=== PATIENT | female | born 1945 | race Caucasian/White ===

== ENCOUNTER 2017-04-30 10:00 | Outpatient (CLI) | payer MEDICARE, OTHER ==
--- NOTE | 2017-04-30 11:09 | BD ---
DEXA BONE MINERAL DENSITOMETRY EXAM, DENSITY STUDY: HISTORY: Postmenopausal. FINDINGS: Lumbar Spine: BMD (g/cm2) L1 1.174 T-Score: +1.7 L2 1.217 T-Score: +1.7 L3 1.395 T-Score: +2.8 L4 1.418 T-Score: +3.2 L1-L4 1.310 T-Score: +2.4 Femoral Neck: 0.649 T-Score: -1.8 Total Femur: 0.729 T-Score: -1.7 Impression: Osteopenia of the left femoral neck with normal bone mineral density of the lumbar spine. Lumbar spi ne value is somewhat elevated probably on the basis of degenerative sclerosis. POS: [facility]ANNA
--- NOTE | 2017-05-19 15:01 | MMO ---
BILATERAL DIGITAL SCREENING MAMMOGRAMS: HISTORY: This 71-year-old female presents for digital screening mammography. COMPARISON: 04/20/13, 03/16/12. This patient's mammogram is interpreted with the assistance of computer-aided detection. FINDINGS: Scattered fibroglandular changes are noted bilaterally. Occasional stable typically benign calcifi cations. Multiple stable bilateral parenchymal density asymmetries. IMPRESSION: BI-RADS category 2, benign findings. Continued routine screening. POS: [facility]
== END 2017-04-30 10:01 | disposition home or self-care (01) ==
LOC: MAMMO 10:00
PROVIDERS: ATTEND Family Medicine
DX: Z12.31 Encounter for screening mammogram for malignant neoplasm of breast (principal); Z78.0 Asymptomatic menopausal state
CPT/HCPCS: 77080; G0202; 77067

== ENCOUNTER 2017-05-23 10:58 | Inpatient (IN) | payer MEDICARE, OTHER ==
[2017-05-23 11:37] LABS: #Basophils 0.1 thou/uL (0.0-0.2); #Eosinphils 0.2 thou/uL (0.0-0.7); #Lymphocytes 4.8 thou/uL (1.20-3.40); #Monocytes 0.4 thou/uL (0.11-0.59); #Neutrophils 13.8 thou/uL (1.40-6.50); %Basophils 0.7 % (0.0-1.0); %Eosinophils 1.1 % (0.0-10.0); %Lymphocytes 24.7 % (21.0-51.0); %Monocytes 2.1 % (0.0-10.0); Mean Platelet Volume 8.2 fL (7.4-10.4); PTT 29.4 SEC (22.9-36.1); Prothrombin Time 15.4 SEC (12.0-14.7); Red Blood Cell (RBC) Count 4.82 mill/uL (4.20-5.40); White Blood Cell (WBC) Count 19.3 thou/uL (4.8-10.8)
[2017-05-23] MEDS ORDERED: ISOVUE-370 76%-LOCM 1 ML ONE (11:47)
[2017-05-23 11:57] LABS: Troponin I Less than 0.010 ng/mL (< 0.028)
[2017-05-23 11:59] LABS: Lactic Acid - Sepsis 6.5 mmol/L (0.5-2.2)
[2017-05-23 12:03] LABS: ALT (SGPT) 22 U/L (8-55); AST (SGOT) 41 U/L (5-34); Alkaline Phosphatase 426 U/L (40-150); Anion Gap 20 mmol/L (10-20); BUN (Urea Nitrogen) 25 mg/dL (9.8-20.1); Bilirubin, Total 0.5 mg/dL (0.2-1.2); CK (CPK) 152 U/L (29-168); Calc. Creatinine Clearance 0 mL/min (70-130); Calcium 9.5 mg/dL (7.8-10.44); Carbon Dioxide 16 mmol/L (23-31); Chloride 105 mmol/L (98-107); Estimated GFR-MDRD 28; Globulin 3.5 g/dL (2.4-3.5); Lipase 123 U/L (8-78); Protein, Total 7.4 g/dL (6.0-8.3)
[2017-05-23] MEDS ORDERED: Piperacillin/Tazobactam 4.5 GM in Sodium Chloride 0.9% 100 ML IVPB SCH (12:30)
[2017-05-23 12:52] LABS: Bilirubin Small (Negative); Blood, Urine Small (Negative); Glucose, Urine (Dipstick) 100 mg/dL (Negative); Ketone, Urine Negative (Negative); Nitrite Positive (Negative); Protein, Urine (Dipstick) 100 mg/dL (Neg-Trace)
[2017-05-23 12:55] LABS: Bacteria/HPF 4+ HPF (None Seen); RBC/HPF 0-3 HPF (0-3); Squamous Epithelial 0-3 HPF (0-3); WBC/HPF 21-50 HPF (0-3)
[2017-05-23 12:59] LABS: Hyaline Casts/LPF 4-6 HYALINE CAST LPF (0-3 Hyaline)
[2017-05-23] MEDS ORDERED: Chloraseptic Spray 180 ml Bottle PO PRN (13:49)
[2017-05-23] MEDS ORDERED: Senokot 8.6 MG TAB PO PRN (13:49)
[2017-05-23] MEDS ORDERED: Zolpidem Tartrate 5 MG TAB PO PRN (13:49)
[2017-05-23] MEDS ORDERED: Ondansetron HCl/PF 4 MG/2 ML Vial IVP PRN (13:49)
[2017-05-23] MEDS ORDERED: HYDROcodone/Acetaminophen 5/325 mg Tablet PO PRN (13:49)
[2017-05-23] MEDS ORDERED: hydrALAZINE 20 MG/ML VIAL SLOW IVP PRN (13:49)
[2017-05-23] MEDS ORDERED: Artificial Tears 18 DROP/0.9 ML EA EYE PRN (13:49)
[2017-05-23] MEDS ORDERED: Milk Of Magnesia 30 ML UDCUP PO PRN (13:49)
[2017-05-23] MEDS ORDERED: Morphine 4 MG/ML Carpuject SLOW IVP PRN (13:49)
[2017-05-23] MEDS ORDERED: Ondansetron ODT 4 MG TAB PO PRN (13:49)
[2017-05-23] MEDS ORDERED: Sodium Chloride 0.65% Nasal 44 ML BOT EA NARE PRN (13:49)
[2017-05-23] MEDS ORDERED: Eucerin (Mineral Oil/Petrolatum,White) 30 gm Jar TOP PRN (13:49)
[2017-05-23] MEDS ORDERED: Diabetic Tussin 200 MG/10 ML UDCUP PO PRN (13:49)
[2017-05-23] MEDS ORDERED: Loratadine 10 MG TAB PO PRN (13:49)
[2017-05-23] MEDS ORDERED: Acetaminophen 325 MG TAB PO PRN (13:49)
[2017-05-23] MEDS ORDERED: Mag-Al 1200 mg/1200 mg/30 ML UDCUP PO PRN (13:49)
--- NOTE | 2017-05-23 13:52 | CT ---
NONCONTRAST HEAD CT: Date: 05/23/17 HISTORY: Altered mental status. COMPARISON: None. TECHNIQUE: Noncontrast head CT is performed from skull base to skull vertex. FINDINGS: No parenchymal hemorrhage or extra-axial hematoma. No midline shift. Basilar cisterns are patent. Age -appropriate atrophy. Cortical mendez-white matter differentiation is preserved. Ventricles and sulci a re patent and symmetric. Adequate aeration of the sinuses and mastoid air cells. Minimal left sphenoi d sinus disease. Calvarium is intact. IMPRESSION: Minimal left sphenoid sinus disease. No acute intracranial process. POS: [facility]
[2017-05-23] MEDS ORDERED: Dextrose 5% in Water 1,000 ML IV PRN (14:11)
[2017-05-23] MEDS ORDERED: Dextrose 50% Abboject 50 ML SYRINGE SLOW IVP PRN (14:11)
[2017-05-23] MEDS ORDERED: HumaLOG 300 UNITS/3 ML VIAL SC PRN (14:11)
--- NOTE | 2017-05-23 14:22 | CT ---
CHEST CT WITH CONTRAST ABDOMEN CT WITH CONTRAST PELVIC CT WITH CONTRAST: Date: 05/23/17 HISTORY: Diffuse abdominal pain. Weakness. COMPARISON: None. TECHNIQUE: A chest, abdomen, and pelvis CT are performed with IV contrast. Coronal and sagittal reformatted imag es are submitted for interpretation. FINDINGS: CHEST CT: No mediastinal mass, lymphadenopathy, or hematoma. Heart size is within normal limits. No pericardial effusion. The thoracic aorta and abdominal aorta have an overall normal caliber. No periaortic fat s tranding. Atherosclerosis of the infrarenal abdominal aorta is noted. There is significant atheroscle rotic disease in both common iliac arteries. Trachea and central bronchi are patent. There are patchy ground-glass opacities, nonspecific. Interst itial prominence is noted. No suspicious masses. No consolidation. No pleural effusion. No pneumothor ax. ABDOMEN CT: Gallbladder is surgically absent. Liver, spleen, pancreas, and adrenal glands have appropriate enhanc ement. Nonspecific periportal edema. Portal vein is patent. No gastrohepatic, retrocrural, or periportal lymphadenopathy. No mesenteric mass, lymphadenopathy or free air. Trace amount of free fluid in both paracolic gutters . Limited evaluation of the alimentary canal due to lack of oral contrast. Multiple mildly enlarged flu id-filled loops of small bowel. Small bowel prominence involves the majority of the small bowel, down to the level of the ileocecal junction. Fluid-filled right hemicolon is noted. The transverse colon and descending colon do have some fecal material, intermixed with fluid. Normal caliber appendix is n ot appreciated. No evidence of inflammation of the cecal apex. Symmetric enhancement of the kidneys. Bilaterally, no obstructive uropathy. PELVIC CT: Surgically absent uterus. Urinary bladder is decompressed, which likely results in mucosal prominence . No pelvic mass, lymphadenopathy, free air, or free fluid. There is a nonspecific focus of air attenuation just posterior to the symphysis pubis, nonspecific. T here are no lytic or blastic lesions in the osseous structures. IMPRESSION: 1. Multiple prominent fluid-filled loops of small bowel. There is also fluid attenuation in parts of the colon. Correlate for possible ileus. A component of enteritis and possible colitis cannot be exc luded. Clinical correlation is essential. 2. Lung parenchymal changes as above. Chronic process is favored. Continued surveillance is recommen ded if there is concern for possible interstitial infiltrate. POS: [facility]
[2017-05-23] MEDS ORDERED: Morphine 4 MG/ML VIAL IV PRN (14:33)
--- NOTE | 2017-05-23 14:36 | HP ---
PRIMARY CARE PHYSICIAN: Mendy Lee M.D. REASON FOR ADMISSION: Septic shock. HISTORY OF PRESENT ILLNESS: A 71-year-old female who was brought to emergency room with complaint of abdominal pain. Patient reports that she was perfectly fine up until last night. Only she was having constipation for couple of days and that is why before going to bed, she took laxative and when she woke up in the morning, she was having diarrhea and she was feeling extremely weak. She was having diffuse, crampy abdominal pain. The patient was getting rigors and chills at home. The patient was feeling dizzy and extremely weak and that is why paramedics were called. Paramedics, when they were bringing her to the emergency room, her blood pressure dropped en route. She was given 4 mg of Zofran for nausea and 50 microgram of fentanyl for abdominal pain. Patient's blood pressure continued to drop up until 62/34. When they arrived to the ER, she was hypothermic with temperature of 93.4. Patient was given total of 4 liters of IV fluid as well as Walter Hugger and warm IV fluid. The patient also received vancomycin and Zosyn, and her blood pressure was improved to 118/76 but her blood pressure recurrently dropping in the emergency room. During entire emergency room period, patient required Walter Hugger to increase her temperature. When I saw, at that time her blood pressure improved to 91/49 and temperature improved to 95.5. She had Lemos catheter placed in our emergency room which was draining cloudy and dirty looking urine. She does not have any further vomiting, but she feels nausea and she does have abdominal pain. She feels cold. She denies any flu-like illness. She denies any headache or syncope. She denies any sore throat, cough, chest pain, palpitation, hematochezia, melena , any recent antibiotic exposure. She also does not feel any UTI symptoms including dysuria, hematuria, increased frequency, but patient does have history of recurrent urinary tract infection in the past. PAST MEDICAL HISTORY: Diabetes type 2, degenerative joint disease, history of endometriosis, chronic low back pain, hypertension, and obesity. PAST SURGICAL HISTORY: Appendicectomy, cholecystectomy, hysterectomy, laparotomy. PAST PSYCHIATRIC HISTORY: Anxiety and depression. SOCIAL HISTORY: Patient is and lives at home with her . Patient drinks alcohol socially and rarely. She has a history of smoking, quantity unable to determine because she reports variable degree of smoking. She denies any other illicit drug abuse. FAMILY HISTORY: No strong family history of premature coronary artery disease, stroke or cancer. ALLERGIES: The patient does have allergy to AVELOX, CIPRO, MOXIFLOXACIN and NSAID. CURRENT HOME MEDICATIONS: The patient did not bring her home medication at this point, so unable to verify her home medication. Based on previous emergency room record, the patient is on following medications; Lantus 22 units subcu twice daily, lisinopril with hydrochlorothiazide 10/12.5 one tablet p.o. daily, Cardizem CD 90 mg p.o. daily, gabapentin 600 mg 3 times daily, bethanechol 10 mg 3 times daily, aspirin 81 mg p.o. daily, Claritin 10 mg p.o. daily, Wellbutrin 75 mg p.o. daily, vitamin D3 2000 units p.o. daily. EMERGENCY ROOM COURSE: So far, patient has received 4 liters of IV fluid, vancomycin, and Zosyn. REVIEW OF SYSTEMS: The following complete review of systems was negative, unless otherwise mentioned in the HPI or below: Constitutional: Weight loss or gain, ability to conduct usual activities. Skin: Rash, itching. Eyes: Double vision, pain. ENT/Mouth: Nose bleeding, neck stiffness, pain, tenderness. Cardiovascular: Palpitations, dyspnea on exertion, orthopnea. Respiratory: Shortness of breath, wheezing, cough, hemoptysis, fever or night sweats. Gastrointestinal: Poor appetite, abdominal pain, heartburn, nausea, vomiting, constipation, or diarrhea. Genitourinary: Urgency, frequency, dysuria, nocturia. Musculoskeletal: Pain, swelling. Neurologic/Psychiatric: Anxiety, depression. Allergy/Immunologic: Skin rash, bleeding tendency. Please see my HPI for pertinent positives and negatives. All other review of systems reviewed and negative except as mentioned in the HPI. PHYSICAL EXAMINATION: VITAL SIGNS: On arrival, blood pressure lowest 62/34, pulse 59, respiratory rate 24, temperature lowest 93.4, saturation 89% on room air and then 100% with 2 liter nasal cannula, weight 81.7 kilograms. GENERAL: Patient is currently sick appearing, hypothermic, hypotensive. No obvious acute distress. HEAD: Normocephalic, atraumatic. EYES: Pupils round and reactive to light. Extraocular muscle intake. No nystagmus, no pallor. ENT: Dry appearing mucous membranes. No oral lesions. No pharyngeal erythema , no exudate, no lymph node. NECK: No lymph nodes palpable. No meningeal signs of irritation. There is no JVD, supple. LUNGS: Few end expiratory wheezing heard in upper and lower lobe. No rales. CARDIAC: S1 and S2 regular. No murmur elicited, no gallop, no rub. ABDOMEN: Patient does have diffuse tenderness. No peritoneal signs, no guarding, no rigidity, no rebound, but diffuse soreness noted. The patient also has suprapubic discomfort. BACK: On examination, no CVA tenderness. EXTREMITIES: Upper extremity; passive movement of all joints are normal. Lower extremity, no edema. Good peripheral pulsation. SKIN: Patient's skin is cool and without any mottling. NEUROLOGIC: Nonfocal examination. She is moving all 4 limbs. Her speech is normal. Cranial nerve intact. Motor and sensation within normal limits, plantar bilateral flexor. PSYCHIATRIC: Normal affect. IMAGING AND SIGNIFICANT LABORATORY DATA: 1. EKG showing sinus bradycardia, nonspecific ST-T changes. 2. Head CT based on my review, no acute intracranial process. 3. Chest CT based on my review, no evidence of infiltrate, but patchy ground glass opacity noted which is nonspecific. 4. Abdomen and pelvis CT scan showing moderately enlarged loops of small bowl that are fluid filled. Fluid attenuation in the parts of the colon consistent with ileus versus gastroenteritis versus colitis. No other acute abscess noted. 5. CBC: WBC 19.3, hemoglobin 16.0, and platelets 189. 6. INR 1.2, PT 15.4, PTT 29.4. 7. BNP 17.3. 8. Lactic acid 6.5. 9. Cardiac enzymes: CK-MB 2.4, troponin I less than 0.010. Lipase 123. CK 152. 10. BMP: Sodium 137, potassium 4.1, chloride 105, carbon dioxide 16, anion gap 20, BUN 25, creatinine 1.79, glucose 287, and calcium 9.5. 11. LFT: Protein 7.4, albumin 3.9, alkaline phosphatase 426, AST 41, ALT 22. 12. Urinalysis: Leukocyte moderate, nitrite positive, blood small, WBCs 21-50 with 4+ bacteria. ASSESSMENT AND PLAN/IMPRESSION: 1. Septic shock. Initially, patient was having hypokalemia with temperature 93.5 with blood pressure 62/34 and tachypnea and relative hypoxia. Patient also had acute kidney failure. The patient's source of infection is most likely urinary tract infection and underlying influenza needs to be excluded. Underlying colitis with Clostridium difficile infection needs to be excluded. At this point, patient's blood pressure has improvement with IV fluid and her blood pressure is also a little bit fluctuating of IV fluid. At this point, I will check random cortisol. She may need needed vasopressor that I discussed with the family member. In that case, we will consider central line placement and if was vasopressor needed, then we will consider her moving to ICU, but I think at this point patient may not need vasopressor, but that is also possibility that in case if patient has no clinical improvement, then she may need to be watched for that in IMCU. 2. Urinary tract infection. This patient has recurrent urinary tract infection. Her urinalysis is dirty and we will send urine culture. At this point, we are going to start with vancomycin and Zosyn. We will follow up on culture result. 3. Colitis. The patient has diarrhea, but she was constipated couple of days ago and she took laxatives. Whatever we are seeing in fluid filled small bowel , probably related with laxative effect, but less likely to be colitis, but still benefit of doubt, I will send Clostridium difficile, ova, parasite, Campylobacter antigen and culture result. At this point, we will avoid giving her any Flagyl at this point. 4. Lactic acidosis with metabolic acidosis due to sepsis. Patient will be given enough gentle IV fluid and we will repeat lactic acid level later on today and tomorrow as well. 5. Acute kidney failure, likely due to dehydration from sepsis as well as diarrhea. The patient will need significant amount of IV fluid. We will monitor renal function. We will avoid nephrotoxin agents. 6. Abnormal liver function tests, most likely related with sepsis effect. We will repeat CMP tomorrow. The patient does not have any clearcut Hutton's sign and she already had cholecystectomy done. So we will monitor LFT and patient's CT abdomen and pelvis does not show any choledocholithiasis, so most likely this is only related with sepsis affect. 7. Diabetes type 2, not well controlled. We will continue with aggressive scale Humalog insulin per sliding scale and I will start Levemir insulin to 20 units subcu b.i.d. 8. History of hypertension, but currently low blood pressure, so we will hold on all her blood pressure medications at this point. 9. Chronic low back pain and patient is taking gabapentin 600 mg 3 times daily. Once we verify this medication dose, then we will resume this medication as well once patient is more stabilized from blood pressure. 10. Anxiety and depression. We will continue Wellbutrin 75 mg p.o. daily. 11. Deep venous thrombosis prophylaxis, Lovenox 40 mg subcu daily. 12. Gastrointestinal prophylaxis, Pepcid 20 mg IV b.i.d. 13. Code status: The patient is FULL CODE. Patient's is surrogate decision maker. Disposition plan based on clinical course. We are expecting patient's stay in hospital more than 2 midnights. Plan of care extensively discussed with the patient and family member. Total time spent providing critical care to this patient in the emergency room is 35 minutes. LORENAD
[2017-05-23] MEDS: Hydrocortisone Sod Succ/PF 100 mg/2 ml Vial IVP SCH ×2 (15:33→21:35)
[2017-05-23] MEDS: Sodium Chloride 0.9% 1,000 ML IV SCH ×2 (15:33→22:47)
[2017-05-23 16:05] VITALS: BMI 30.5
[2017-05-23] MEDS: Piperacillin/Tazobactam 3.375 GM, Admixture Fee 1 EACH in Sodium Chloride 0.9% 100 ML IVPB SCH ×2 (18:09→23:59)
[2017-05-23] MEDS ORDERED: Insulin Detemir 100 UNITS/ML 10 UNITS in Admixture Fee 1 EACH SC SCH (21:00)
[2017-05-23] MEDS: Famotidine/PF 20 mg/2ml Vial SLOW IVP SCH (21:36)
[2017-05-24] MEDS: Hydrocortisone Sod Succ/PF 100 mg/2 ml Vial IVP SCH ×2 (02:18→08:22)
[2017-05-24 05:52] LABS: Band 17 % (5-11); Hematocrit 40.7 % (36.0-47.0); Mean Platelet Volume 8.4 fL (7.4-10.4); Neutrophil 77 % (42-75); Red Blood Cell (RBC) Count 4.07 mill/uL (4.20-5.40); White Blood Cell (WBC) Count 27.5 thou/uL (4.8-10.8)
[2017-05-24] MEDS: Piperacillin/Tazobactam 3.375 GM, Admixture Fee 1 EACH in Sodium Chloride 0.9% 100 ML IVPB SCH ×3 (05:55→18:04)
[2017-05-24] MEDS: Sodium Chloride 0.9% 1,000 ML IV SCH (05:59)
[2017-05-24 06:04] LABS: ALT (SGPT) 20 U/L (8-55); AST (SGOT) 48 U/L (5-34); Alkaline Phosphatase 260 U/L (40-150); BUN (Urea Nitrogen) 25 mg/dL (9.8-20.1); Bilirubin, Total 0.4 mg/dL (0.2-1.2); Calc. Creatinine Clearance 47 mL/min (70-130); Calcium 7.8 mg/dL (7.8-10.44); Estimated GFR-MDRD 36; Globulin 2.8 g/dL (2.4-3.5); Lipase 10 U/L (8-78); Magnesium 2.1 mg/dL (1.6-2.6); Phosphorus 3.8 mg/dL (2.3-4.7); Protein, Total 5.9 g/dL (6.0-8.3)
[2017-05-24 06:07] LABS: Anion Gap 15 mmol/L (10-20); Carbon Dioxide 15 mmol/L (23-31); Chloride 114 mmol/L (98-107)
[2017-05-24] MEDS: HumaLOG 300 UNITS/3 ML VIAL SC PRN (06:15)
[2017-05-24] MEDS: Saccharomyces boulardii 250 MG CAP PO SCH (08:17)
[2017-05-24] MEDS: Famotidine/PF 20 mg/2ml Vial SLOW IVP SCH (08:17)
[2017-05-24] MEDS: Enoxaparin Sodium 40 MG/0.4 ML SYRINGE SC SCH (08:18)
[2017-05-24] MEDS ORDERED: Sodium Chloride 0.9% 1,000 ML IV SCH (08:45)
[2017-05-24] MEDS ORDERED: Sodium Chloride 0.45% 1,000 ML IV SCH (08:45)
[2017-05-24] MEDS ORDERED: INSULIN GLARGINE HUM REC ANLOG 12 UNIT SC SCH (09:00)
[2017-05-24] MEDS ORDERED: Insulin Detemir 100 UNITS/ML 10 UNITS in Admixture Fee 1 EACH SC SCH (09:00)
[2017-05-24] MEDS: Famotidine 20 MG TAB PO SCH ×2 (10:56→20:42)
[2017-05-24] MEDS: Pioglitazone HCl 45 MG TAB PO SCH (11:14)
[2017-05-24] MEDS: Bethanechol Chloride 10 MG TAB PO SCH ×3 (11:15→20:42)
[2017-05-24] MEDS: Gabapentin 300 MG CAP PO SCH ×4 (11:16→20:42)
[2017-05-24] MEDS: Diltiazem HCl SR 60 mg Capsule PO SCH ×2 (11:17→20:42)
[2017-05-24] MEDS: Insulin Detemir 100 UNITS/ML 12 UNITS in Pre-Filled Syringe 1 EACH SC SCH ×2 (11:24→20:53)
--- NOTE | 2017-05-24 12:57 | PDOC.PN ---
- Subjective Encounter Start Date: 05/24/17 Encounter Start Time: 08:45 -: old records requested/rev Patient seen and examined. No new complaints. No overnight events, pt is very weak, BP improved, no fever - Objective Resuscitation Status: Resuscitation Status FULL:Full Resuscitation MAR Reviewed: Yes Vital Signs & Weight: Vital Signs (12 hours) Temp Pulse Resp BP Pulse Ox 05/24/17 12:00 98 05/24/17 11:15 99.9 F H 96 20 151/56 H 96 05/24/17 08:00 98.6 F 91 20 100 05/24/17 07:14 98.6 F 91 20 141/59 H 100 05/24/17 04:00 99.4 F 91 20 136/55 L 98 I&O: 05/23/17 05/24/17 05/25/17 06:59 06:59 06:59 Intake Total 450 1060 Balance 450 1060 Result Diagrams: 05/24/17 04:00 05/24/17 04:00 Additional Labs: Accuchecks 05/24/17 05/24/17 05/23/17 11:52 06:12 20:31 POC Glucose 273 H 221 H 199 H 05/23/17 17:02 POC Glucose 178 H EKG Reviewed by me: Yes (NSR) Phys Exam - Physical Examination Constitutional: NAD HEENT: PERRLA, moist MMs, sclera anicteric Neck: no JVD, supple Respiratory: no wheezing, no rales, no rhonchi Cardiovascular: RRR, no significant murmur, no rub Gastrointestinal: soft, non-tender, no distention, positive bowel sounds Musculoskeletal: no edema, pulses present Neurological: non-focal, normal sensation Lymphatic: no nodes Psychiatric: normal affect, A&O x 3 Skin: no rash, normal turgor Dx/Plan (1) Acute kidney failure Status: Acute Comment: improving (2) Gastroenteritis Code(s): K52.9 - NONINFECTIVE GASTROENTERITIS AND COLITIS, UNSPECIFIED Status : Resolved (3) Lactic acidosis Code(s): E87.2 - ACIDOSIS Status: Resolved (4) Sepsis with acute organ dysfunction Code(s): A41.9 - SEPSIS, UNSPECIFIED ORGANISM; R65.20 - SEVERE SEPSIS WITHOUT SEPTIC SHOCK Status: Acute (5) UTI (urinary tract infection) Status: Acute Qualifiers: Urinary tract infection type: acute cystitis (6) Anxiety and depression Code(s): F41.8 - OTHER SPECIFIED ANXIETY DISORDERS Status: Chronic (7) Diabetes type 2, controlled Code(s): E11.9 - TYPE 2 DIABETES MELLITUS WITHOUT COMPLICATIONS Status: Chronic (8) Hypertension Code(s): I10 - ESSENTIAL (PRIMARY) HYPERTENSION Status: Chronic (9) Obesity (BMI 30.0-34.9) Code(s): E66.9 - OBESITY, UNSPECIFIED Status: Chronic (10) Septic shock Code(s): A41.9 - SEPSIS, UNSPECIFIED ORGANISM; R65.21 - SEVERE SEPSIS WITH SEPTIC SHOCK Status: Resolved - Plan cont current plan of care, continue antibiotics * DC Lemos catheter * advance diet * start PT * continue empiric IV antibiotics, vancomycin and zosyn * follow culture * medication reviewed as below * symptomatic treatment. * start selected home medication * reduce IVF * wbc is high due to steroid * DC solucortef * check post void residual volume * will repeat labs tomorrow Review of Systems - Review of Systems ENT: negative: Ear Pain, Ear Discharge, Nose Pain, Nose Discharge, Nose Congestion, Mouth Pain, Mouth Swelling, Throat Pain, Throat Swelling, Other Respiratory: negative: Cough, Dry, Shortness of Breath, Hemoptysis, SOB with Excertion, Pleuritic Pain, Sputum, Wheezing Cardiovascular: negative: Chest Pain, Palpitations, Orthopnea, Paroxysmal Noc. Dyspnea, Edema, Light Headedness, Other Gastrointestinal: negative: Nausea, Vomiting, Abdominal Pain, Diarrhea, Constipation, Melena, Hematochezia, Other Genitourinary: negative: Dysuria, Frequency, Incontinence, Hematuria, Retention , Other Musculoskeletal: negative: Neck Pain, Shoulder Pain, Arm Pain, Back Pain, Hand Pain, Leg Pain, Foot Pain, Other Skin: negative: Rash, Lesions, Hany, Bruising, Other - Medications/Allergies Allergies/Adverse Reactions: Allergies Allergy/AdvReac Type Severity Reaction Status Date / Time ciprofloxacin [From Cipro] Allergy Verified 05/23/17 15:26 moxifloxacin [From Avelox] Allergy Verified 05/23/17 15:26 NSAIDS (Non-Steroidal Allergy Verified 05/23/17 15:26 Anti-Inflamma Medications: Current Medications Acetaminophen (Tylenol) 650 mg PO Q4H PRN PRN Reason: Headache/Fever or Pain Hydrocodone Bitart/Acetaminophen ([place] 5/325) 1 tab PO Q4H PRN PRN Reason: Moderate Pain (4-6) Hydrocodone Bitart/Acetaminophen ([place] 10/325) 1 tab PO Q6HR PRN PRN Reason: Pain Al Hydroxide/Mg Hydroxide (Maalox) 30 ml PO Q6H PRN PRN Reason: Heartburn or Indigestion Albuterol/Ipratropium (Duoneb) 3 ml NEB [id number] PRN PRN Reason: SOB &/or Wheezing Artificial Tears (Tears Naturale) 0 drop EA EYE PRN PRN PRN Reason: Dry Eyes Bethanechol Chloride (Urecholine) 30 mg PO TID [facility] Last Admin: 05/24/17 11:15 Dose: 30 mg Dextrose/Water (Dextrose 50%) 25 gm SLOW IVP PRN PRN PRN Reason: Hypoglycemia Diltiazem HCl (Cardizem Sr) 60 mg PO BID [facility] Last Admin: 05/24/17 11:17 Dose: 60 mg Duloxetine HCl (Cymbalta) 60 mg PO DAILY [facility] Last Admin: 05/24/17 11:23 Dose: 60 mg Enoxaparin Sodium (Lovenox) 40 mg SC 0900 [facility] Last Admin: 05/24/17 08:18 Dose: Not Given Famotidine (Pepcid) 20 mg PO BID [facility] Last Admin: 05/24/17 10:56 Dose: Not Given Gabapentin (Neurontin) 600 mg PO QID [facility] Last Admin: 05/24/17 11:16 Dose: 600 mg Glucagon (Glucagon) 1 mg IM PRN PRN PRN Reason: Hypoglycemia Guaifenesin (Robitussin Sf) 200 mg PO Q4H PRN PRN Reason: Cough Hydralazine HCl (Apresoline) 10 mg SLOW IVP Q4H PRN PRN Reason: Systolic BP > 180 Piperacillin Sod/Tazobactam Sod 3.375 gm/ Miscellaneous Medication 1 each/ Sodium Chloride 100 mls @ 200 mls/hr IVPB Q6HR [facility] Last Admin: 05/24/17 11:22 Dose: 100 mls Dextrose/Water (D5w) 1,000 mls @ 0 mls/hr IV .Q0M PRN; As Directed PRN Reason: Hypoglycemia Vancomycin HCl 1 gm/ Device 200 mls @ 200 mls/hr IVPB Q24HR@1300 [facility] Sodium Chloride (1/2 Normal Saline) 1,000 mls @ 75 mls/hr IV .[id number] [facility] Last Admin: 05/24/17 11:14 Dose: 1,000 mls Insulin Detemir 12 units/ (Miscellaneous Medication) 0.12 mls @ 0 mls/hr SC BID [facility] Last Admin: 05/24/17 11:24 Dose: Not Given Insulin Human Lispro (Humalog) 0 units SC .AGGRESSIVE SLIDING PRN PRN Reason: Aggressive Correctional Scale Last Admin: 05/24/17 06:15 Dose: 6 unit Insulin Human Lispro (Humalog) 0 units SC .BEDTIME SLIDING SC PRN PRN Reason: Bedtime Correctional Scale Loperamide HCl (Imodium) 2 mg PO PRN PRN PRN Reason: Diarrhea/Loose Stools Loratadine (Claritin) 10 mg PO DAILYPRN PRN PRN Reason: Sinus Symptoms Magnesium Hydroxide (Milk Of Magnesium) 30 ml PO DAILYPRN PRN PRN Reason: Constipation Mineral Oil/White Petrolatum (Eucerin Cream) 0 gm TOP BIDPRN PRN PRN Reason: Dry Skin Miscellaneous Medication (Pharmacy To Dose) 1 each IVPB PRN PRN PRN Reason: Pharmacy to dose Morphine Sulfate (Morphine) 4 mg IV Q4H PRN PRN Reason: Pain Ondansetron HCl (Zofran Odt) 4 mg PO Q6H PRN PRN Reason: Nausea/Vomiting Ondansetron HCl (Zofran) 4 mg IVP Q6H PRN PRN Reason: Nausea/Vomiting Phenol (Chloraseptic [place] 180 Ml Bot) 0 ml PO PRN PRN PRN Reason: Sore Throat Pioglitazone HCl (Actos) 45 mg PO DAILY [facility] Last Admin: 05/24/17 11:14 Dose: 45 mg Saccharomyces Boulardii (Florastor) 250 mg PO DAILY [facility] Last Admin: 05/24/17 08:17 Dose: 250 mg Senna (Senokot) 2 tab PO HSPRN PRN PRN Reason: Constipation Simvastatin (Zocor) 10 mg PO HS [facility] Sodium Chloride ([place] Nasal [place] 0.65%) 0 ml EA NARE QIDPRN PRN PRN Reason: Nasal Congestion Sodium Chloride (Flush - Normal Saline) 10 ml IVF Q12HR [facility] Last Admin: 05/24/17 08:18 Dose: Not Given Sodium Chloride (Flush - Normal Saline) 10 ml IVF PRN PRN PRN Reason: Saline Flush Zolpidem Tartrate (Ambien) 5 mg PO HSPRN PRN PRN Reason: Insomnia
[2017-05-24] MEDS: Loperamide HCl 2 MG CAP PO PRN ×2 (13:07→15:20)
[2017-05-24] MEDS: Vancomycin HCl 1 GM in Premix Bag 1 BAG IVPB SCH (13:07)
[2017-05-24] MEDS: Sodium Chloride 0.45% 1,000 ML IV SCH (18:30)
[2017-05-24] MEDS: Simvastatin 5 MG TAB PO SCH (20:42)
[2017-05-24] MEDS: HYDROcodone/Acetaminophen 10/325 mg Tablet PO PRN (21:00)
[2017-05-25] MEDS: Sodium Chloride 0.45% 1,000 ML IV SCH ×4 (00:14→23:12)
[2017-05-25] MEDS: Piperacillin/Tazobactam 3.375 GM, Admixture Fee 1 EACH in Sodium Chloride 0.9% 100 ML IVPB SCH ×5 (00:14→23:07)
[2017-05-25 05:52] LABS: Band 13 % (5-11); Hematocrit 33.9 % (36.0-47.0); Mean Platelet Volume 8.2 fL (7.4-10.4); Neutrophil 77 % (42-75); Red Blood Cell (RBC) Count 3.41 mill/uL (4.20-5.40); White Blood Cell (WBC) Count 16.7 thou/uL (4.8-10.8)
[2017-05-25 06:06] LABS: ALT (SGPT) 24 U/L (8-55); AST (SGOT) 63 U/L (5-34); Alkaline Phosphatase 160 U/L (40-150); Anion Gap 9 mmol/L (10-20); BUN (Urea Nitrogen) 15 mg/dL (9.8-20.1); Bilirubin, Total 0.5 mg/dL (0.2-1.2); Calc. Creatinine Clearance 70 mL/min (70-130); Calcium 8.2 mg/dL (7.8-10.44); Carbon Dioxide 20 mmol/L (23-31); Chloride 114 mmol/L (98-107); Estimated GFR-MDRD 57; Globulin 2.4 g/dL (2.4-3.5); Magnesium 1.8 mg/dL (1.6-2.6); Phosphorus 1.6 mg/dL (2.3-4.7); Protein, Total 5.3 g/dL (6.0-8.3)
--- NOTE | 2017-05-25 07:00 | CON ---
DATE OF CONSULTATION: 05/24/2017 REASON FOR CONSULTATION: Heme positive stool. HISTORY OF PRESENT ILLNESS: Ms. Luis is a 71-year-old female who was admitted to the hospital with systemic inflammatory response syndrome yesterday. She reports that she had been constipated for a c ouple of days last week when she started taking some [id number] laxative. This was not uncommo n for her as she takes chronic narcotic pain medications. She started taking some Correctol with sto ol softener and then on yesterday she began to fare very weak while she was on the commode and strain ing to have a bowel movement. She passed several golf ball-like stools and then became very weak and EMS was called by her family. She had pressures that dropped into the 60s. She had chills and cliff rs and then had some vomiting at home. In the emergency room, she responded to IV fluids. She had a CAT scan of her chest, abdomen and pelvis which showed some dilated loops of small bowel and little bit of constipation, but no overt bowel wall thickening or overt obstruction. She received 4 liters of fluid in the ER as well as IV fluids for temperature of 93.4 and she was started on vancomycin and Zosyn empirically. Presently, she feels much better. She said her stools about 3 or 4 times today have been watery. The nurses note they have been heme positive. There has been no overt mention of gross bleeding. She had a Lemos catheter placed and then that was taken out today. She is voiding o n her own. She complains of the pain being suprapubic in nature. She states the pain has been const ant but not really colicky related to bowel function. She does not recall if the pain that she had y esterday was related to cramping like she needed to have a bowel movement, she just felt bad. PAST MEDICAL HISTORY: Type 2 diabetes, degenerative joint disease, history of endometriosis, chronic low back pain, hypertension, obesity. PAST SURGICAL HISTORY: Appendectomy, cholecystectomy, hysterectomy, laparotomy. She does have a his tory of some anxiety and depression. SOCIAL HISTORY: The patient is and lives with her . She drinks alcohol very rarely. She smokes intermittently, but not much. FAMILY HISTORY: Negative for colorectal cancer or liver disease. ALLERGIES: AVELOX, CIPRO, MOXIFLOXACIN and NSAIDs. HOME MEDICATIONS: Lantus insulin, lisinopril, hydrochlorothiazide, Cardizem, gabapentin, Claritin, W ellbutrin, vitamin D. She states she also has narcotic pain medicine at home, hydrocodone that she t akes every 6 hours, Cymbalta and also some Actos. PRESENT MEDICATIONS: 75, , diltiazem, duloxetine, Lovenox, Pepcid, gabapentin, hydralazin e, hydrocodone p.r.n., magnesium hydroxide, Actos, Zosyn, Saccharomyces boulardii, Zocor, Senokot, va ncomycin. PHYSICAL EXAMINATION: GENERAL: She is resting comfortably in bed. VITAL SIGNS: Temperature max 99, temperature current 98, pulse 75, blood pressure 116/56. LUNGS: Clear. HEART: Regular rate and rhythm without clicks or murmurs. ABDOMEN: Soft, slightly protuberant. There are no inguinal or umbilical hernias. Bowel sounds are quiescent. She is diffusely tender without rebound or guarding. RECTAL: Reveals green stool without any overt melena. LABORATORY: White count 27,000, hemoglobin 13, platelet count 182. Chemistry: Sodium is 140, potas sium 4.1, chloride 114, bicarbonate 15, anion gap is 11, BUN 25, creatinine 1.42. Baseline creatinin e is about 1, glucose 118, AST and ALT are 48 and 20. Alkaline phosphatase 260, it is down from 490 yesterday. AST was 41 yesterday. ALT was 20 yesterday. Albumin 3, cortisol was normal. TSH was no rmal. Lipase was normal. CAT scan films were reviewed, radiology report was reviewed. Areas of flu id noted with multiple prominent fluid filled loops of small bowel and parts of the colon consistent with ileus. Cultures, stools all negative. Clostridium difficile is negative. Urine is E. coli. Blood is pending. ASSESSMENT: This is a 71-year-old female who was admitted to the hospital with severe systemic infla mmatory response syndrome, possibly related to a urinary tract infection for an acute gastroenteritis . This was also happening in conjunction with her taking quite a bit of laxatives for chronic narcot ic-induced constipation, she may have induced mild intestinal ischemia causing all this. In any even t, she is much better. She is still quite dehydrated, is voiding though and feels better . She stil l is very distended; however. RECOMMENDATIONS: I would continue the antibiotics and continue serial exams. I will repeat her film s in the morning and back her diet up to full liquids. She does not need to be eating roughage right now with a distended abdomen as she has some mild ischemia.
--- NOTE | 2017-05-25 08:36 | RAD ---
ABDOMEN TWO VIEWS: History: Abdominal distention. FINDINGS: Gaseous distention of the colon is seen. Small bowel gas pattern is unremarkable. No evidence of free air seen on decubitus film. No mass effect or abnormal calcification. Evidence of prior cholecystect diann. IMPRESSION: Mild gaseous distention of the colon without significant dilatation. POS: [facility]
[2017-05-25] MEDS: Gabapentin 300 MG CAP PO SCH ×4 (08:58→20:50)
[2017-05-25] MEDS: Famotidine 20 MG TAB PO SCH ×2 (08:58→20:51)
[2017-05-25] MEDS: Saccharomyces boulardii 250 MG CAP PO SCH (08:58)
[2017-05-25] MEDS: Insulin Detemir 100 UNITS/ML 12 UNITS in Pre-Filled Syringe 1 EACH SC SCH ×2 (09:00→21:04)
[2017-05-25] MEDS: Enoxaparin Sodium 40 MG/0.4 ML SYRINGE SC SCH (09:02)
[2017-05-25] MEDS: Bethanechol Chloride 10 MG TAB PO SCH ×3 (09:04→20:50)
[2017-05-25] MEDS: Pioglitazone HCl 45 MG TAB PO SCH (09:04)
[2017-05-25] MEDS: Diltiazem HCl SR 60 mg Capsule PO SCH ×2 (09:06→20:52)
[2017-05-25] MEDS: HYDROcodone/Acetaminophen 10/325 mg Tablet PO PRN ×2 (10:23→21:03)
--- NOTE | 2017-05-25 11:04 | PDOC.PN ---
- Subjective Encounter Start Date: 05/25/17 Encounter Start Time: 09:20 pt does not have diarrhoea, but still has abdominal pain, no fever Patient seen and examined. No new complaints. No overnight events - Objective Resuscitation Status: Resuscitation Status FULL:Full Resuscitation MAR Reviewed: Yes Vital Signs & Weight: Vital Signs (12 hours) Temp Pulse Resp BP Pulse Ox 05/25/17 08:00 98.2 F 81 17 113/64 96 05/25/17 03:41 98.4 F 90 16 97/44 L 94 L 05/25/17 02:12 93 L 05/24/17 23:22 97.7 F 86 20 114/57 L 98 I&O: 05/24/17 05/25/17 05/26/17 06:59 06:59 06:59 Intake Total 450 2250 300 Output Total 1600 Balance 450 650 300 Result Diagrams: 05/25/17 04:47 05/25/17 04:47 Additional Labs: Accuchecks 05/25/17 05/25/17 05/24/17 10:32 05:52 19:49 POC Glucose 186 H 108 204 H 05/24/17 05/24/17 16:55 11:52 POC Glucose 187 H 273 H Radiology Reviewed by me: Yes (xray abdomen) EKG Reviewed by me: Yes (nsr) Phys Exam - Physical Examination Constitutional: NAD HEENT: PERRLA, moist MMs, sclera anicteric Neck: no JVD, supple Respiratory: no wheezing, no rales, no rhonchi, clear to auscultation bilateral Cardiovascular: RRR, no significant murmur, no rub Gastrointestinal: soft, positive bowel sounds diffuse sore, mild distention Musculoskeletal: no edema, pulses present Neurological: non-focal, normal sensation, moves all 4 limbs Psychiatric: normal affect, A&O x 3 Skin: no rash, normal turgor Dx/Plan (1) Acute kidney failure Status: Resolved Comment: (2) Gastroenteritis Code(s): K52.9 - NONINFECTIVE GASTROENTERITIS AND COLITIS, UNSPECIFIED Status : Acute (3) Lactic acidosis Code(s): E87.2 - ACIDOSIS Status: Resolved (4) Sepsis with acute organ dysfunction Code(s): A41.9 - SEPSIS, UNSPECIFIED ORGANISM; R65.20 - SEVERE SEPSIS WITHOUT SEPTIC SHOCK Status: Acute (5) UTI (urinary tract infection) Status: Acute Qualifiers: Urinary tract infection type: acute cystitis (6) Anxiety and depression Code(s): F41.8 - OTHER SPECIFIED ANXIETY DISORDERS Status: Chronic (7) Diabetes type 2, controlled Code(s): E11.9 - TYPE 2 DIABETES MELLITUS WITHOUT COMPLICATIONS Status: Chronic (8) Hypertension Code(s): I10 - ESSENTIAL (PRIMARY) HYPERTENSION Status: Chronic (9) Obesity (BMI 30.0-34.9) Code(s): E66.9 - OBESITY, UNSPECIFIED Status: Chronic (10) Septic shock Code(s): A41.9 - SEPSIS, UNSPECIFIED ORGANISM; R65.21 - SEVERE SEPSIS WITH SEPTIC SHOCK Status: Resolved (11) Colonic ischemia Code(s): K55.9 - VASCULAR DISORDER OF INTESTINE, UNSPECIFIED Status: Acute (12) Hypophosphatemia Code(s): E83.39 - OTHER DISORDERS OF PHOSPHORUS METABOLISM Status: Acute (13) Ileus Code(s): K56.7 - ILEUS, UNSPECIFIED Status: Acute - Plan cont current plan of care, continue antibiotics * continue full liquid diet * pain control with pain meds * ambulate with PT * medication reviewed as below * symptomatic treatment * transfer to medical * diet as tolerated * continue zosyn for now * on discharge po Cipro. Review of Systems - Review of Systems Constitutional: Weakness, Malaise. negative: Fever, Chills, Sweats, Other Eyes: negative: Pain, Vision Change, Conjunctivae Inflammation, Eyelid Inflammation, Redness, Other ENT: negative: Ear Pain, Ear Discharge, Nose Pain, Nose Discharge, Nose Congestion, Mouth Pain, Mouth Swelling, Throat Pain, Throat Swelling, Other Respiratory: negative: Cough, Dry, Shortness of Breath, Hemoptysis, SOB with Excertion, Pleuritic Pain, Sputum, Wheezing Cardiovascular: negative: Chest Pain, Palpitations, Orthopnea, Paroxysmal Noc. Dyspnea, Edema, Light Headedness, Other Gastrointestinal: Abdominal Pain. negative: Nausea, Vomiting, Diarrhea, Constipation, Melena, Hematochezia, Other Genitourinary: negative: Dysuria, Frequency, Incontinence, Hematuria, Retention , Other Musculoskeletal: negative: Neck Pain, Shoulder Pain, Arm Pain, Back Pain, Hand Pain, Leg Pain, Foot Pain, Other Skin: negative: Rash, Lesions, Hany, Bruising, Other - Medications/Allergies Allergies/Adverse Reactions: Allergies Allergy/AdvReac Type Severity Reaction Status Date / Time ciprofloxacin [From Cipro] Allergy Verified 05/23/17 15:26 moxifloxacin [From Avelox] Allergy Verified 05/23/17 15:26 NSAIDS (Non-Steroidal Allergy Verified 05/23/17 15:26 Anti-Inflamma Medications: Current Medications Acetaminophen (Tylenol) 650 mg PO Q4H PRN PRN Reason: Headache/Fever or Pain Last Admin: 05/24/17 13:07 Dose: 650 mg Hydrocodone Bitart/Acetaminophen ([place] 5/325) 1 tab PO Q4H PRN PRN Reason: Moderate Pain (4-6) Hydrocodone Bitart/Acetaminophen ([place] 10/325) 1 tab PO Q6HR PRN PRN Reason: Pain Last Admin: 05/25/17 10:23 Dose: 1 tab Al Hydroxide/Mg Hydroxide (Maalox) 30 ml PO Q6H PRN PRN Reason: Heartburn or Indigestion Albuterol/Ipratropium (Duoneb) 3 ml NEB [id number] PRN PRN Reason: SOB &/or Wheezing Artificial Tears (Tears Naturale) 0 drop EA EYE PRN PRN PRN Reason: Dry Eyes Bethanechol Chloride (Urecholine) 30 mg PO TID [facility] Last Admin: 05/25/17 09:04 Dose: 30 mg Dextrose/Water (Dextrose 50%) 25 gm SLOW IVP PRN PRN PRN Reason: Hypoglycemia Diltiazem HCl (Cardizem Sr) 60 mg PO BID [facility] Last Admin: 05/25/17 09:06 Dose: 60 mg Duloxetine HCl (Cymbalta) 60 mg PO DAILY [facility] Last Admin: 05/25/17 08:58 Dose: 60 mg Enoxaparin Sodium (Lovenox) 40 mg SC 0900 [facility] Last Admin: 05/25/17 09:02 Dose: 40 mg Famotidine (Pepcid) 20 mg PO BID [facility] Last Admin: 05/25/17 08:58 Dose: 20 mg Gabapentin (Neurontin) 600 mg PO QID [facility] Last Admin: 05/25/17 08:58 Dose: 600 mg Glucagon (Glucagon) 1 mg IM PRN PRN PRN Reason: Hypoglycemia Guaifenesin (Robitussin Sf) 200 mg PO Q4H PRN PRN Reason: Cough Hydralazine HCl (Apresoline) 10 mg SLOW IVP Q4H PRN PRN Reason: Systolic BP > 180 Piperacillin Sod/Tazobactam Sod 3.375 gm/ Miscellaneous Medication 1 each/ Sodium Chloride 100 mls @ 200 mls/hr IVPB Q6HR [facility] Last Admin: 05/25/17 05:51 Dose: 100 mls Dextrose/Water (D5w) 1,000 mls @ 0 mls/hr IV .Q0M PRN; As Directed PRN Reason: Hypoglycemia Vancomycin HCl 1 gm/ Device 200 mls @ 200 mls/hr IVPB Q24HR@1300 [facility] Last Admin: 05/24/17 13:07 Dose: 200 mls Insulin Detemir 12 units/ (Miscellaneous Medication) 0.12 mls @ 0 mls/hr SC BID [facility] Last Admin: 05/25/17 09:00 Dose: 0.12 mls Sodium Chloride (1/2 Normal Saline) 1,000 mls @ 125 mls/hr IV .Q8H [facility] Last Admin: 05/25/17 00:14 Dose: 1,000 mls Insulin Human Lispro (Humalog) 0 units SC .AGGRESSIVE SLIDING PRN PRN Reason: Aggressive Correctional Scale Last Admin: 05/24/17 06:15 Dose: 6 unit Insulin Human Lispro (Humalog) 0 units SC .BEDTIME SLIDING SC PRN PRN Reason: Bedtime Correctional Scale Last Admin: 05/24/17 20:57 Dose: 2 unit Loperamide HCl (Imodium) 2 mg PO PRN PRN PRN Reason: Diarrhea/Loose Stools Last Admin: 05/24/17 15:20 Dose: 2 mg Loratadine (Claritin) 10 mg PO DAILYPRN PRN PRN Reason: Sinus Symptoms Magnesium Hydroxide (Milk Of Magnesium) 30 ml PO DAILYPRN PRN PRN Reason: Constipation Mineral Oil/White Petrolatum (Eucerin Cream) 0 gm TOP BIDPRN PRN PRN Reason: Dry Skin Miscellaneous Medication (Pharmacy To Dose) 1 each IVPB PRN PRN PRN Reason: Pharmacy to dose Miscellaneous Medication (Phos-Nak) 2 pkt PO TID [facility] Stop: 05/26/17 21:01 Last Admin: 05/25/17 08:57 Dose: 2 pkt Morphine Sulfate (Morphine) 4 mg IV Q4H PRN PRN Reason: Pain Ondansetron HCl (Zofran Odt) 4 mg PO Q6H PRN PRN Reason: Nausea/Vomiting Ondansetron HCl (Zofran) 4 mg IVP Q6H PRN PRN Reason: Nausea/Vomiting Last Admin: 05/24/17 13:07 Dose: 4 mg Phenol (Chloraseptic [place] 180 Ml Bot) 0 ml PO PRN PRN PRN Reason: Sore Throat Pioglitazone HCl (Actos) 45 mg PO DAILY [facility] Last Admin: 05/25/17 09:04 Dose: 45 mg Saccharomyces Boulardii (Florastor) 250 mg PO DAILY [facility] Last Admin: 05/25/17 08:58 Dose: 250 mg Senna (Senokot) 2 tab PO HSPRN PRN PRN Reason: Constipation Simvastatin (Zocor) 10 mg PO HS [facility] Last Admin: 05/24/17 20:42 Dose: 10 mg Sodium Chloride ([place] Nasal [place] 0.65%) 0 ml EA NARE QIDPRN PRN PRN Reason: Nasal Congestion Sodium Chloride (Flush - Normal Saline) 10 ml IVF Q12HR [facility] Last Admin: 05/25/17 09:21 Dose: 10 ml Sodium Chloride (Flush - Normal Saline) 10 ml IVF PRN PRN PRN Reason: Saline Flush Zolpidem Tartrate (Ambien) 5 mg PO HSPRN PRN PRN Reason: Insomnia
[2017-05-25 12:15] LABS: Vancomycin, Trough 5.5 ug/mL
[2017-05-25] MEDS: HumaLOG 300 UNITS/3 ML VIAL SC PRN (13:10)
[2017-05-25] MEDS: Vancomycin HCl 1 GM in Premix Bag 1 BAG IVPB SCH ×2 (13:42→14:17)
--- NOTE | 2017-05-25 18:29 | PRG ---
DATE OF SERVICE: 05/25/2017 SUBJECTIVE: Her abdominal pain is present, but improving. She has had no diarrhea. No nausea or vo miting. OBJECTIVE: VITAL SIGNS: Temperature 98.1, pulse 79, and blood pressure 107/63. GENERAL: She is in no acute distress, awake and alert. LUNGS: Clear to auscultation bilaterally. HEART: Regular rate and rhythm. ABDOMEN: Soft. Moderate tenderness in the epigastric region without guarding. Bowel sounds are pre sent. EXTREMITIES: No lower extremity edema. LABORATORY DATA: White blood cell count 16.7, hemoglobin 11.3, platelets 131. Creatinine 0.96. IMPRESSION: 1. Severe sepsis and urinary tract infection. 2. Acute gastroenteritis. I suspect she developed ischemic colitis related to having taken the laxa tives for constipation. She has since been rehydrated and is doing better. RECOMMENDATIONS: 1. Fluids and antibiotics. 2. Advance her diet if she tolerates it tomorrow morning. 3. Follow up in the office around a month and we can plan surveillance colonoscopy at that point. S he did have adenomatous polyps removed from her colon in 05/2010 and is overdue for surveillance colo noscopy.
[2017-05-25] MEDS: Simvastatin 5 MG TAB PO SCH (20:50)
[2017-05-26] MEDS: Vancomycin HCl 1 GM in Premix Bag 1 BAG IVPB SCH ×2 (01:41→12:37)
[2017-05-26] MEDS: Piperacillin/Tazobactam 3.375 GM, Admixture Fee 1 EACH in Sodium Chloride 0.9% 100 ML IVPB SCH ×2 (04:18→11:33)
[2017-05-26 04:33] LABS: #Eosinphils 0.1 thou/uL (0.0-0.7); #Monocytes 0.5 thou/uL (0.11-0.59); #Neutrophils 9.5 thou/uL (1.40-6.50); %Basophils 0.2 % (0.0-1.0); %Eosinophils 1.2 % (0.0-10.0); %Lymphocytes 16.3 % (21.0-51.0); %Monocytes 4.3 % (0.0-10.0); Hematocrit 34.7 % (36.0-47.0); Mean Platelet Volume 7.7 fL (7.4-10.4); Red Blood Cell (RBC) Count 3.48 mill/uL (4.20-5.40); White Blood Cell (WBC) Count 12.1 thou/uL (4.8-10.8)
[2017-05-26 04:57] LABS: Anion Gap 9 mmol/L (10-20); BUN (Urea Nitrogen) 9 mg/dL (9.8-20.1); Calc. Creatinine Clearance 68 mL/min (70-130); Calcium 8.9 mg/dL (7.8-10.44); Carbon Dioxide 26 mmol/L (23-31); Chloride 109 mmol/L (98-107); Estimated GFR-MDRD 56
[2017-05-26] MEDS: Famotidine 20 MG TAB PO SCH ×2 (09:01→20:30)
[2017-05-26] MEDS: Diltiazem HCl SR 60 mg Capsule PO SCH ×2 (09:01→20:31)
[2017-05-26] MEDS: Pioglitazone HCl 45 MG TAB PO SCH (09:02)
[2017-05-26] MEDS: Gabapentin 300 MG CAP PO SCH ×4 (09:02→20:30)
[2017-05-26] MEDS: Saccharomyces boulardii 250 MG CAP PO SCH (09:02)
[2017-05-26] MEDS: Enoxaparin Sodium 40 MG/0.4 ML SYRINGE SC SCH (09:02)
[2017-05-26] MEDS: Bethanechol Chloride 10 MG TAB PO SCH ×3 (09:04→20:29)
[2017-05-26] MEDS ORDERED: HYDROcodone/Acetaminophen 10/325 mg Tablet PO PRN (10:45)
--- NOTE | 2017-05-26 12:51 | PDOC.PN ---
- Subjective Encounter Start Date: 05/26/17 Encounter Start Time: 08:30 pt has mild soreness of abdomen, but she feels much better, she has diarrhoea, no distention - Objective Resuscitation Status: Resuscitation Status FULL:Full Resuscitation MAR Reviewed: Yes Vital Signs & Weight: Vital Signs (12 hours) Temp Pulse Resp BP Pulse Ox 05/26/17 12:26 98.5 F 81 16 138/73 97 05/26/17 08:00 97.6 F 78 16 149/71 H 98 05/26/17 04:00 98.2 F 76 18 127/75 96 I&O: 05/25/17 05/26/17 05/27/17 06:59 06:59 06:59 Intake Total 2250 3100 Output Total 1600 Balance 650 3100 Result Diagrams: 05/26/17 04:15 05/26/17 04:15 Additional Labs: Accuchecks 05/26/17 05/26/17 05/25/17 11:16 05:25 20:21 POC Glucose 85 66 L 97 05/25/17 05/25/17 17:01 15:58 POC Glucose 80 57 L* Phys Exam - Physical Examination Constitutional: NAD HEENT: PERRLA, moist MMs, sclera anicteric Neck: no JVD, supple Respiratory: no wheezing, no rales, no rhonchi Cardiovascular: RRR, no significant murmur, no rub Gastrointestinal: soft, non-tender, no distention, positive bowel sounds Musculoskeletal: no edema, pulses present Neurological: non-focal, normal sensation, moves all 4 limbs Lymphatic: no nodes Psychiatric: normal affect, A&O x 3 Skin: no rash, normal turgor Dx/Plan (1) Acute kidney failure Status: Resolved Comment: (2) Gastroenteritis Code(s): K52.9 - NONINFECTIVE GASTROENTERITIS AND COLITIS, UNSPECIFIED Status : Acute (3) Lactic acidosis Code(s): E87.2 - ACIDOSIS Status: Resolved (4) Sepsis with acute organ dysfunction Code(s): A41.9 - SEPSIS, UNSPECIFIED ORGANISM; R65.20 - SEVERE SEPSIS WITHOUT SEPTIC SHOCK Status: Acute (5) UTI (urinary tract infection) Status: Acute Qualifiers: Urinary tract infection type: acute cystitis (6) Anxiety and depression Code(s): F41.8 - OTHER SPECIFIED ANXIETY DISORDERS Status: Chronic (7) Diabetes type 2, controlled Code(s): E11.9 - TYPE 2 DIABETES MELLITUS WITHOUT COMPLICATIONS Status: Chronic (8) Hypertension Code(s): I10 - ESSENTIAL (PRIMARY) HYPERTENSION Status: Chronic (9) Obesity (BMI 30.0-34.9) Code(s): E66.9 - OBESITY, UNSPECIFIED Status: Chronic (10) Septic shock Code(s): A41.9 - SEPSIS, UNSPECIFIED ORGANISM; R65.21 - SEVERE SEPSIS WITH SEPTIC SHOCK Status: Resolved (11) Colonic ischemia Code(s): K55.9 - VASCULAR DISORDER OF INTESTINE, UNSPECIFIED Status: Acute (12) Hypophosphatemia Code(s): E83.39 - OTHER DISORDERS OF PHOSPHORUS METABOLISM Status: Acute (13) Ileus Code(s): K56.7 - ILEUS, UNSPECIFIED Status: Acute - Plan cont current plan of care, continue antibiotics, PT/OT * DC vancomycin and zosyn * start rocephin * also add macrobid on discharge * advance diet * medication reviewed as below * symptomatic treatment * ambulate and continue PT * will repeat labs tomorrow * reduce IVF. Review of Systems - Review of Systems ENT: negative: Ear Pain, Ear Discharge, Nose Pain, Nose Discharge, Nose Congestion, Mouth Pain, Mouth Swelling, Throat Pain, Throat Swelling, Other Respiratory: negative: Cough, Dry, Shortness of Breath, Hemoptysis, SOB with Excertion, Pleuritic Pain, Sputum, Wheezing Cardiovascular: negative: Chest Pain, Palpitations, Orthopnea, Paroxysmal Noc. Dyspnea, Edema, Light Headedness, Other Gastrointestinal: negative: Nausea, Vomiting, Abdominal Pain, Diarrhea, Constipation, Melena, Hematochezia, Other Genitourinary: negative: Dysuria, Frequency, Incontinence, Hematuria, Retention , Other Musculoskeletal: negative: Neck Pain, Shoulder Pain, Arm Pain, Back Pain, Hand Pain, Leg Pain, Foot Pain, Other Skin: negative: Rash, Lesions, Hany, Bruising, Other - Medications/Allergies Allergies/Adverse Reactions: Allergies Allergy/AdvReac Type Severity Reaction Status Date / Time ciprofloxacin [From Cipro] Allergy Verified 05/23/17 15:26 moxifloxacin [From Avelox] Allergy Verified 05/23/17 15:26 NSAIDS (Non-Steroidal Allergy Verified 05/23/17 15:26 Anti-Inflamma Medications: Current Medications Acetaminophen (Tylenol) 650 mg PO Q4H PRN PRN Reason: Headache/Fever or Pain Last Admin: 05/24/17 13:07 Dose: 650 mg Hydrocodone Bitart/Acetaminophen ([place] 5/325) 1 tab PO Q4H PRN PRN Reason: Moderate Pain (4-6) Hydrocodone Bitart/Acetaminophen ([place] 10/325) 1 tab PO Q6H PRN PRN Reason: Severe Pain (7-10) Al Hydroxide/Mg Hydroxide (Maalox) 30 ml PO Q6H PRN PRN Reason: Heartburn or Indigestion Albuterol/Ipratropium (Duoneb) 3 ml NEB [id number] PRN PRN Reason: SOB &/or Wheezing Artificial Tears (Tears Naturale) 0 drop EA EYE PRN PRN PRN Reason: Dry Eyes Bethanechol Chloride (Urecholine) 30 mg PO TID [facility] Last Admin: 05/26/17 09:04 Dose: 30 mg Dextrose/Water (Dextrose 50%) 25 gm SLOW IVP PRN PRN PRN Reason: Hypoglycemia Diltiazem HCl (Cardizem Sr) 60 mg PO BID [facility] Last Admin: 05/26/17 09:01 Dose: 60 mg Duloxetine HCl (Cymbalta) 60 mg PO DAILY [facility] Last Admin: 05/26/17 09:02 Dose: 60 mg Enoxaparin Sodium (Lovenox) 40 mg SC 0900 [facility] Last Admin: 05/26/17 09:02 Dose: 40 mg Famotidine (Pepcid) 20 mg PO BID [facility] Last Admin: 05/26/17 09:01 Dose: 20 mg Gabapentin (Neurontin) 600 mg PO QID [facility] Last Admin: 05/26/17 12:36 Dose: 600 mg Glucagon (Glucagon) 1 mg IM PRN PRN PRN Reason: Hypoglycemia Guaifenesin (Robitussin Sf) 200 mg PO Q4H PRN PRN Reason: Cough Hydralazine HCl (Apresoline) 10 mg SLOW IVP Q4H PRN PRN Reason: Systolic BP > 180 Piperacillin Sod/Tazobactam Sod 3.375 gm/ Miscellaneous Medication 1 each/ Sodium Chloride 100 mls @ 200 mls/hr IVPB Q6HR [facility] Last Admin: 05/26/17 11:33 Dose: 100 mls Dextrose/Water (D5w) 1,000 mls @ 0 mls/hr IV .Q0M PRN; As Directed PRN Reason: Hypoglycemia Sodium Chloride (1/2 Normal Saline) 1,000 mls @ 125 mls/hr IV .Q8H [facility] Last Admin: 05/25/17 23:12 Dose: 1,000 mls Vancomycin HCl 1 gm/ Device 200 mls @ 200 mls/hr IVPB 0100,1300 [facility] Last Admin: 05/26/17 12:37 Dose: 200 mls Insulin Human Lispro (Humalog) 0 units SC .AGGRESSIVE SLIDING PRN PRN Reason: Aggressive Correctional Scale Last Admin: 05/25/17 13:10 Dose: 3 unit Insulin Human Lispro (Humalog) 0 units SC .BEDTIME SLIDING SC PRN PRN Reason: Bedtime Correctional Scale Last Admin: 05/24/17 20:57 Dose: 2 unit Loperamide HCl (Imodium) 2 mg PO PRN PRN PRN Reason: Diarrhea/Loose Stools Last Admin: 05/24/17 15:20 Dose: 2 mg Loratadine (Claritin) 10 mg PO DAILYPRN PRN PRN Reason: Sinus Symptoms Magnesium Hydroxide (Milk Of Magnesium) 30 ml PO DAILYPRN PRN PRN Reason: Constipation Mineral Oil/White Petrolatum (Eucerin Cream) 0 gm TOP BIDPRN PRN PRN Reason: Dry Skin Miscellaneous Medication (Pharmacy To Dose) 1 each IVPB PRN PRN PRN Reason: Pharmacy to dose Miscellaneous Medication (Phos-Nak) 2 pkt PO TID [facility] Stop: 05/26/17 21:01 Last Admin: 05/26/17 11:35 Dose: 2 pkt Morphine Sulfate (Morphine) 4 mg IV Q4H PRN PRN Reason: Severe Pain (7-10) Ondansetron HCl (Zofran Odt) 4 mg PO Q6H PRN PRN Reason: Nausea/Vomiting Ondansetron HCl (Zofran) 4 mg IVP Q6H PRN PRN Reason: Nausea/Vomiting Last Admin: 05/24/17 13:07 Dose: 4 mg Phenol (Chloraseptic [place] 180 Ml Bot) 0 ml PO PRN PRN PRN Reason: Sore Throat Pioglitazone HCl (Actos) 45 mg PO DAILY [facility] Last Admin: 05/26/17 09:02 Dose: 45 mg Saccharomyces Boulardii (Florastor) 250 mg PO DAILY [facility] Last Admin: 05/26/17 09:02 Dose: 250 mg Senna (Senokot) 2 tab PO HSPRN PRN PRN Reason: Constipation Simvastatin (Zocor) 10 mg PO HS [facility] Last Admin: 05/25/17 20:50 Dose: 10 mg Sodium Chloride ([place] Nasal [place] 0.65%) 0 ml EA NARE QIDPRN PRN PRN Reason: Nasal Congestion Sodium Chloride (Flush - Normal Saline) 10 ml IVF Q12HR [facility] Last Admin: 05/26/17 09:04 Dose: Not Given Sodium Chloride (Flush - Normal Saline) 10 ml IVF PRN PRN PRN Reason: Saline Flush Zolpidem Tartrate (Ambien) 5 mg PO HSPRN PRN PRN Reason: Insomnia
[2017-05-26] MEDS ORDERED: cefTRIAXone\\ROCEPHIN 1 GM, Syringe 0.4 ML in Sterile Water 9.6 ML SLOW IVP SCH (13:00)
[2017-05-26] MEDS ORDERED: cefTRIAXone\\ROCEPHIN 1 GM in Sodium Chloride 0.9% 100 ML IVPB SCH (13:00)
[2017-05-26] MEDS: Sodium Chloride 0.45% 1,000 ML IV SCH ×2 (13:14→15:28)
[2017-05-26] MEDS ORDERED: Hyoscyamine Sulfate SL 0.125 mg Tablet SL PRN (18:25)
--- NOTE | 2017-05-26 18:52 | PRG ---
DATE OF SERVICE: 05/26/2017 SUBJECTIVE: She has had increased cramping and diarrhea today. She had 6 or 8 stools today. She di d eat an egg sandwich from [employer] about a fourth of one. She has had no blood in the stool. OBJECTIVE: VITAL SIGNS: Temperature 98.0, pulse 90, blood pressure 129/69. GENERAL: She is in no acute distress. She is awake and alert. LUNGS: Clear to auscultation bilaterally. HEART: Regular rate and rhythm. ABDOMEN: Soft. It is somewhat tender diffusely without guarding. Bowel sounds are present. EXTREMITIES: No lower extremity edema. LABORATORY DATA: White blood cell count 12.1, hemoglobin 11.3, platelets 135, creatinine 0.98. IMPRESSION: 1. Abdominal pain and diarrhea. She most likely has ischemic colitis. She has had a flare of the c ramping and diarrhea today. Acute infectious gastroenteritis is possible; however, she originally pr esented with constipation and her stool studies have been negative. 2. Severe sepsis and urinary tract infection. RECOMMENDATIONS: 1. Continue fluids and antibiotics. 2. Probiotics. 3. We will add hyoscyamine for symptomatic treatment of the cramping. 4. Followup colonoscopy as an outpatient in 4-6 weeks will be planned.
[2017-05-26] MEDS: Simvastatin 5 MG TAB PO SCH (20:30)
[2017-05-26] MEDS: Nitrofurantoin Monohyd/M-Cryst 100 MG CAP PO SCH (20:44)
[2017-05-27] MEDS: Sodium Chloride 0.45% 1,000 ML IV SCH (00:02)
[2017-05-27] MEDS: Bethanechol Chloride 10 MG TAB PO SCH (10:05)
[2017-05-27] MEDS: Gabapentin 300 MG CAP PO SCH (10:06)
[2017-05-27] MEDS: Saccharomyces boulardii 250 MG CAP PO SCH (10:06)
[2017-05-27] MEDS: Nitrofurantoin Monohyd/M-Cryst 100 MG CAP PO SCH (10:06)
[2017-05-27] MEDS: Diltiazem HCl SR 60 mg Capsule PO SCH (10:06)
[2017-05-27] MEDS: Famotidine 20 MG TAB PO SCH (10:07)
[2017-05-27] MEDS: Pioglitazone HCl 45 MG TAB PO SCH (10:07)
[2017-05-27] MEDS: Enoxaparin Sodium 40 MG/0.4 ML SYRINGE SC SCH (10:07)
--- NOTE | 2017-05-27 10:35 | PDOC.PN ---
- Subjective Encounter Start Date: 05/27/17 Encounter Start Time: 09:10 Patient seen and examined. No new complaints. No overnight events - Objective Resuscitation Status: Resuscitation Status FULL:Full Resuscitation MAR Reviewed: Yes Vital Signs & Weight: Vital Signs (12 hours) Temp Pulse Resp BP Pulse Ox 05/27/17 08:00 98.6 F 85 16 145/75 H 98 I&O: 05/26/17 05/27/17 05/28/17 06:59 06:59 06:59 Intake Total 3100 1580 Balance 3100 1580 Result Diagrams: 05/26/17 04:15 05/26/17 04:15 Additional Labs: Accuchecks 05/27/17 05/26/17 05/26/17 04:42 20:21 17:08 POC Glucose 145 H 202 H 209 H 05/26/17 11:16 POC Glucose 85 Phys Exam - Physical Examination Constitutional: NAD HEENT: PERRLA, moist MMs, sclera anicteric Neck: no JVD, supple Respiratory: no wheezing, no rales, no rhonchi Cardiovascular: RRR, no significant murmur, no rub Gastrointestinal: soft, non-tender, no distention, positive bowel sounds Musculoskeletal: no edema, pulses present Neurological: non-focal, normal sensation, moves all 4 limbs Lymphatic: no nodes Psychiatric: normal affect, A&O x 3 Skin: no rash, normal turgor Dx/Plan (1) Acute kidney failure Status: Resolved Comment: (2) Gastroenteritis Code(s): K52.9 - NONINFECTIVE GASTROENTERITIS AND COLITIS, UNSPECIFIED Status : Acute (3) Lactic acidosis Code(s): E87.2 - ACIDOSIS Status: Resolved (4) Sepsis with acute organ dysfunction Code(s): A41.9 - SEPSIS, UNSPECIFIED ORGANISM; R65.20 - SEVERE SEPSIS WITHOUT SEPTIC SHOCK Status: Acute (5) UTI (urinary tract infection) Status: Acute Qualifiers: Urinary tract infection type: acute cystitis (6) Anxiety and depression Code(s): F41.8 - OTHER SPECIFIED ANXIETY DISORDERS Status: Chronic (7) Diabetes type 2, controlled Code(s): E11.9 - TYPE 2 DIABETES MELLITUS WITHOUT COMPLICATIONS Status: Chronic (8) Hypertension Code(s): I10 - ESSENTIAL (PRIMARY) HYPERTENSION Status: Chronic (9) Obesity (BMI 30.0-34.9) Code(s): E66.9 - OBESITY, UNSPECIFIED Status: Chronic (10) Septic shock Code(s): A41.9 - SEPSIS, UNSPECIFIED ORGANISM; R65.21 - SEVERE SEPSIS WITH SEPTIC SHOCK Status: Resolved (11) Colonic ischemia Code(s): K55.9 - VASCULAR DISORDER OF INTESTINE, UNSPECIFIED Status: Acute (12) Hypophosphatemia Code(s): E83.39 - OTHER DISORDERS OF PHOSPHORUS METABOLISM Status: Acute (13) Ileus Code(s): K56.7 - ILEUS, UNSPECIFIED Status: Acute - Plan cont current plan of care, continue antibiotics * medication reviewed as below * symptomatic treatment * stable for discharge * see discharge betty. Review of Systems - Review of Systems ENT: negative: Ear Pain, Ear Discharge, Nose Pain, Nose Discharge, Nose Congestion, Mouth Pain, Mouth Swelling, Throat Pain, Throat Swelling, Other Respiratory: negative: Cough, Dry, Shortness of Breath, Hemoptysis, SOB with Excertion, Pleuritic Pain, Sputum, Wheezing Cardiovascular: negative: Chest Pain, Palpitations, Orthopnea, Paroxysmal Noc. Dyspnea, Edema, Light Headedness, Other Gastrointestinal: negative: Nausea, Vomiting, Abdominal Pain, Diarrhea, Constipation, Melena, Hematochezia, Other Genitourinary: negative: Dysuria, Frequency, Incontinence, Hematuria, Retention , Other Musculoskeletal: negative: Neck Pain, Shoulder Pain, Arm Pain, Back Pain, Hand Pain, Leg Pain, Foot Pain, Other Skin: negative: Rash, Lesions, Hany, Bruising, Other - Medications/Allergies Allergies/Adverse Reactions: Allergies Allergy/AdvReac Type Severity Reaction Status Date / Time ciprofloxacin [From Cipro] Allergy Verified 05/23/17 15:26 moxifloxacin [From Avelox] Allergy Verified 05/23/17 15:26 NSAIDS (Non-Steroidal Allergy Verified 05/23/17 15:26 Anti-Inflamma Medications: Current Medications Acetaminophen (Tylenol) 650 mg PO Q4H PRN PRN Reason: Headache/Fever or Pain Last Admin: 05/24/17 13:07 Dose: 650 mg Hydrocodone Bitart/Acetaminophen ([place] 5/325) 1 tab PO Q4H PRN PRN Reason: Moderate Pain (4-6) Hydrocodone Bitart/Acetaminophen ([place] 10/325) 1 tab PO Q6H PRN PRN Reason: Severe Pain (7-10) Last Admin: 05/26/17 23:57 Dose: 1 tab Al Hydroxide/Mg Hydroxide (Maalox) 30 ml PO Q6H PRN PRN Reason: Heartburn or Indigestion Albuterol/Ipratropium (Duoneb) 3 ml NEB [id number] PRN PRN Reason: SOB &/or Wheezing Artificial Tears (Tears Naturale) 0 drop EA EYE PRN PRN PRN Reason: Dry Eyes Bethanechol Chloride (Urecholine) 30 mg PO TID [facility] Last Admin: 05/27/17 10:05 Dose: 30 mg Dextrose/Water (Dextrose 50%) 25 gm SLOW IVP PRN PRN PRN Reason: Hypoglycemia Diltiazem HCl (Cardizem Sr) 60 mg PO BID [facility] Last Admin: 05/27/17 10:06 Dose: 60 mg Duloxetine HCl (Cymbalta) 60 mg PO DAILY [facility] Last Admin: 05/27/17 10:07 Dose: 60 mg Enoxaparin Sodium (Lovenox) 40 mg SC 0900 [facility] Last Admin: 05/27/17 10:07 Dose: 40 mg Famotidine (Pepcid) 20 mg PO BID [facility] Last Admin: 05/27/17 10:07 Dose: 20 mg Gabapentin (Neurontin) 600 mg PO QID [facility] Last Admin: 05/27/17 10:06 Dose: 600 mg Glucagon (Glucagon) 1 mg IM PRN PRN PRN Reason: Hypoglycemia Guaifenesin (Robitussin Sf) 200 mg PO Q4H PRN PRN Reason: Cough Hydralazine HCl (Apresoline) 10 mg SLOW IVP Q4H PRN PRN Reason: Systolic BP > 180 Hyoscyamine Sulfate (Levsin Sl) 0.125 mg SL Q4H PRN PRN Reason: GI Cramping Last Admin: 05/26/17 20:32 Dose: 0.125 mg Dextrose/Water (D5w) 1,000 mls @ 0 mls/hr IV .Q0M PRN; As Directed PRN Reason: Hypoglycemia Sodium Chloride (1/2 Normal Saline) 1,000 mls @ 75 mls/hr IV .[id number] [facility] Last Admin: 05/27/17 00:02 Dose: 1,000 mls Ceftriaxone Sodium 1 gm/ (Syringe 0.4 ml/ Sterile Water) 10 mls @ 120 mls/hr SLOW IVP 1300 RYAN Last Admin: 05/26/17 15:28 Dose: 10 mls Insulin Human Lispro (Humalog) 0 units SC .AGGRESSIVE SLIDING PRN PRN Reason: Aggressive Correctional Scale Last Admin: 05/25/17 13:10 Dose: 3 unit Insulin Human Lispro (Humalog) 0 units SC .BEDTIME SLIDING SC PRN PRN Reason: Bedtime Correctional Scale Last Admin: 05/24/17 20:57 Dose: 2 unit Loperamide HCl (Imodium) 2 mg PO PRN PRN PRN Reason: Diarrhea/Loose Stools Last Admin: 05/24/17 15:20 Dose: 2 mg Loratadine (Claritin) 10 mg PO DAILYPRN PRN PRN Reason: Sinus Symptoms Magnesium Hydroxide (Milk Of Magnesium) 30 ml PO DAILYPRN PRN PRN Reason: Constipation Mineral Oil/White Petrolatum (Eucerin Cream) 0 gm TOP BIDPRN PRN PRN Reason: Dry Skin Morphine Sulfate (Morphine) 4 mg IV Q4H PRN PRN Reason: Severe Pain (7-10) Nitrofurantoin Macrocrystals (Macrobid) 100 mg PO BID [facility] Last Admin: 05/27/17 10:06 Dose: 100 mg Ondansetron HCl (Zofran Odt) 4 mg PO Q6H PRN PRN Reason: Nausea/Vomiting Ondansetron HCl (Zofran) 4 mg IVP Q6H PRN PRN Reason: Nausea/Vomiting Last Admin: 05/24/17 13:07 Dose: 4 mg Phenol (Chloraseptic [place] 180 Ml Bot) 0 ml PO PRN PRN PRN Reason: Sore Throat Pioglitazone HCl (Actos) 45 mg PO DAILY [facility] Last Admin: 05/27/17 10:07 Dose: 45 mg Saccharomyces Boulardii (Florastor) 250 mg PO DAILY [facility] Last Admin: 05/27/17 10:06 Dose: 250 mg Senna (Senokot) 2 tab PO HSPRN PRN PRN Reason: Constipation Simvastatin (Zocor) 10 mg PO HS [facility] Last Admin: 05/26/17 20:30 Dose: 10 mg Sodium Chloride ([place] Nasal [place] 0.65%) 0 ml EA NARE QIDPRN PRN PRN Reason: Nasal Congestion Sodium Chloride (Flush - Normal Saline) 10 ml IVF Q12HR RYAN Last Admin: 05/27/17 10:08 Dose: 10 ml Sodium Chloride (Flush - Normal Saline) 10 ml IVF PRN PRN PRN Reason: Saline Flush Zolpidem Tartrate (Ambien) 5 mg PO HSPRN PRN PRN Reason: Insomnia
[2017-05-27 11:48] VITALS: BP 149/68; TEMP 98.1
--- NOTE | 2017-05-27 12:19 | DIS ---
DATE OF ADMISSION: 05/23/2017 DATE OF DISCHARGE: 05/27/2017 PRIMARY CARE PHYSICIAN: Dr. Mendy Lee. DISCHARGE DISPOSITION: Home. PRIMARY DISCHARGE DIAGNOSES: 1. Septic shock, resolved. 2. Urinary tract infection. 3. Lactic acidosis, resolved. 4. Gastroenteritis, resolved. 5. Ischemic colitis, improved. 6. Ileus, resolved. 7. Sepsis with acute organ dysfunction, resolved. 8. Acute kidney failure, resolved. SECONDARY DISCHARGE DIAGNOSES: Obesity with BMI of 30, anxiety and depression, hypertension and diab etes type 2. PRIMARY PROCEDURE/OPERATION: None. RADIOLOGICAL INVESTIGATION: CT brain was negative for any acute intracranial process. Chest, abdome n, and pelvis CT scan showed findings suggestive of gastroenteritis versus ileus. Abdomen x-ray show ed colonic ileus. SIGNIFICANT LABORATORIES: WBC 12.1, hemoglobin 11.3, platelets 135. INR 1.2. Sodium 140, potassium 4.1, BUN 9, creatinine 0.98, calcium 8.9. Urinalysis is suggestive of UTI. Urine culture grew E. c eulogio. Stool for infection workup is negative. Blood culture negative, influenza negative. DISCHARGE MEDICATIONS: Macrobid 100 mg twice daily for 7 days. The patient will continue following medication as per previous: Bethanechol 30 mg t.i.d., Cardizem CD 60 mg p.o. b.i.d., Cymbalta 60 mg p.o. daily, gabapentin 600 mg p.o. q.i.d., [place] 10 one tablet q.6 hourly p.r.n., Lantus 12 units sub cutaneously b.i.d., lisinopril 5 mg p.o. b.i.d., Actos 45 mg p.o. daily, promethazine 25 mg p.o. twic e daily p.r.n. and Zocor 10 mg p.o. at bedtime. CONTRAINDICATIONS: None. CODE STATUS: FULL CODE. INPATIENT CONSULTANTS: Dr. Cast was following while in hospital. Dr. Davis was consulted while in hospital. TEST RESULTS PENDING ON DISCHARGE: None. ALLERGIES: CIPRO, MOXIFLOXACIN and NSAID. DISCHARGE PLAN: Post hospital, the patient will follow up with Dr. Lee in 1 week as well as Dr. Blount for surveillance colonoscopy. HOSPITAL COURSE: A 71-year-old female who was admitted by me. Please see my HPI for further details . This patient presented to emergency room with abdominal pain. She was having constipation and subseq uently she took laxatives after that she was having diarrhea and she was feeling abdominal distention and diffuse abdominal crampy pain. Patient was feeling mild distention. She was hypotensive and her blood pressure was not coming up ev en after IV fluid. She was so hypotensive that her lowest blood pressure was 62/34 and she was also hypothermic. She was meeting septic shock, but luckily her temperature improved with Walter Hugger as well as her blood pressure improved with several liters of IV fluid in the emergency room. She was a dmitted to the [facility]. She did not require any vasopressor. Her urinalysis was suggestive of urinary tract infection and that is why we started on empiric antibi otic therapy as she was having diarrhea and that is why we did a stool for infection workup that came back negative. She had severe lactic acidosis and that we attributed to be due to colonic ischemia, gastroenterology was consulted. Patient had ileus and she had ischemia of colon that was improved with conservative therapy. Subsequ ently, we advanced her diet to regular diet and she was tolerating well. Her abdominal pain complete ly resolved. She is now hemodynamically stable. Her renal function improved. Patient is feeling up to normal. On discharge, we changed to Macrobid for urinary tract infection. The patient's ileus, ischemic coli tis, and gastroenteritis completely resolved. While in hospital, we gave her initially Rocephin and Flagyl, but that was discontinued upon discharge. The patient is seen and examined at bedside today. Please see my progress note from today for furthe r details. Total time spent on discharge day 31 minutes.
== END 2017-05-27 12:05 | disposition home or self-care (01) | DRG 871 ==
LOC: ERS 10:58 → ERHOLD 13:36 → IMCU/EMU 15:03 → T4-A 05-25 15:13
PROVIDERS: ADMIT Internal Medicine; ATTEND Internal Medicine
DX: A41.9 Sepsis, unspecified organism (principal); R65.21 Severe sepsis with septic shock; N17.9 Acute kidney failure, unspecified; E87.2 Acidosis; K55.9 Vascular disorder of intestine, unspecified; T68.XXXA Hypothermia, initial encounter; K56.7 Ileus, unspecified; N30.00 Acute cystitis without hematuria; K59.00 Constipation, unspecified; M19.90 Unspecified osteoarthritis, unspecified site; G89.29 Other chronic pain; M54.5 Low back pain; I10 Essential (primary) hypertension; E66.9 Obesity, unspecified; Z68.30 Body mass index [BMI] 30.0-30.9, adult; F41.9 Anxiety disorder, unspecified; F32.9 Major depressive disorder, single episode, unspecified; Z88.1 Allergy status to other antibiotic agents; Z88.8 Allergy status to other drugs, medicaments and biological substances; Z79.82 Long term (current) use of aspirin; Z79.4 Long term (current) use of insulin; E87.6 Hypokalemia; E86.0 Dehydration; K52.9 Noninfective gastroenteritis and colitis, unspecified; F17.210 Nicotine dependence, cigarettes, uncomplicated; Z79.891 Long term (current) use of opiate analgesic; E83.39 Other disorders of phosphorus metabolism; K21.9 Gastro-esophageal reflux disease without esophagitis; E11.42 Type 2 diabetes mellitus with diabetic polyneuropathy; M79.7 Fibromyalgia; J30.2 Other seasonal allergic rhinitis; N39.41 Urge incontinence
CPT/HCPCS: 36415; 36416; 51702; 70450; 71260; 74020; 74177; 80048; 80053; 80202; 81003; 81015; 82274; 82533; 82553; 83605; 83690; 83735; 83880; 84100; 84484; 85025; 85610; 85730; 86850; 86900; 86901; 87015; 87040; 87045; 87046; 87077; 87086; 87186; 87324; 87328; 87329; 87449; 87899; 93005; 94760; 96360; 96365; 96368; A4216; G8978-GP-CI; G8979-GP-CI; G8980-GP-CI; G8987-GO-CI; G8988-GO-CI; G8989-GO-CI; J0696; J1650; J1815; J2543; J3370; J7050; S0028

== ENCOUNTER 2018-06-29 10:04 | Outpatient (CLI) | payer MEDICARE, OTHER ==
--- NOTE | 2018-06-29 12:55 | MRI ---
MRI LUMBAR SPINE WITHOUT CONTRAST: HISTORY: Spinal stenosis. Chronic low back pain. Right hip pain for six to eight months. COMPARISON: 03/04/2010 TECHNIQUE: MRI lumbar spine is performed without intravenous Gadolinium administration. Multisequential, multip lanar imaging is performed. FINDINGS: Appropriate T1 marrow signal intensity of the lumbar vertebrae. Lumbar spine vertebral body height i s maintained. There is no fracture. No significant STIR hyperintensity to suggest vertebral body ed mara or ligamentous injury. There is appropriate signal intensity of the visualized solid organs. Symmetric signal intensity of the psoas muscles. Subcentimeter T2 hyperintensities in the lower pole of the right kidney likely represent cysts. Poss ible parapelvic cyst in the left renal pelvis. T12-L1: Adequate risk hydration. No significant central canal stenosis. The neural foramina are pa tent. L1-L2: Adequate disk hydration. Minimal ligamentum flavum thickening and facet hypertrophy. Minimal posterior disk abnormality. No significant central canal stenosis. The neural foramina are patent. L2-L3: There is 3 mm of anterolisthesis of L2 upon L3. No significant loss of disk space height. T here is a central/left subarticular disk bulge. Ligamentum flavum thickening and facet hypertrophy a re present. There is mild to moderate central canal stenosis. The right neural foramen is patent. Mild left foraminal narrowing. L3-L4: Desiccation without significant loss of disk space height. There is 5 mm of anterolisthesis of L3 upon L4. Broad-based disk bulge, ligamentum flavum thickening, and facet hypertrophy result in moderate to severe central canal stenosis. Subtle T2 and STIR hyperintensity along the posterior ma rgins of the disk may represent a small annular tear. There are annular tears at the level of the xiong barticular zone. There is a small amount of fluid in both facet joints. The right neural foramen is patent. Mild left foraminal narrowing. L4-L5: Desiccation with moderate loss of disk space height. Broad-based disk bulge, ligamentum flav um thickening, and facet hypertrophy result in moderate central canal stenosis. Mild bilateral arti inal narrowing. L5-S1: Adequate disk hydration. Disk space height is preserved. Generalized disk bulge, ligamentum flavum thickening, and facet hypertrophy result in mild central canal stenosis. The right subarticu lar zone is unremarkable. There is mild narrowing of the left subarticular zone. Mild to moderate b ilateral foraminal narrowing. There is 4 mm of anterolisthesis of L5 upon S1. IMPRESSION: Degenerative changes of the lumbar spine, as detailed above. POS: HANNA
== END 2018-06-29 10:05 | disposition home or self-care (01) ==
LOC: SCSMRI 10:04
PROVIDERS: ATTEND Physical Medicine & Rehabilitation
DX: M48.061 Spinal stenosis, lumbar region without neurogenic claudication (principal); M47.816 Spondylosis without myelopathy or radiculopathy, lumbar region
CPT/HCPCS: 72148